=== PATIENT | male | born 2000 | race Caucasian/White ===

== ENCOUNTER 2023-02-19 20:46 | Emergency (ER) | payer OTHER ==
[2023-02-19 20:59] VITALS: BP 130/80
--- NOTE | 2023-02-19 21:09 | ED Physician Documentation ---
History of Present Illness - Stated complaint Stated Complaint: HEAD INJ - Chief complaint Chief Complaint: Trauma Hd/Nk - Additonal information Additional information: 22-year-old male presents emergency department for evaluation of a scalp laceration. 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 Tetanus is up-to-date. No loss of consciousness. No vomiting or neurodeficits. He is not anticoagulated Review of Systems Constitutional: reports: Reviewed and negative Skin: reports: Laceration (s) Neurologic: reports: Head injury. denies: Headache, LOC PD PAST MEDICAL HISTORY - Allergies Allergies/Adverse Reactions: Allergies Allergy/AdvReac Type Severity Reaction Status Date / Time No Known Drug Allergies Allergy Verified 02/19/23 20:51 PD ED PE NORMAL - General General: Alert and oriented X 3, No acute distress, Well developed/nourished - HEENT HEENT: PERRL, Moist mucous membranes, Other (Negative for hemotympanum, raccoon eyes, and harrison sign). No: Atraumatic (1.5 cm laceration on the top of the scalp. 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 Eye Opening: Spontaneous Motor: Obeys Commands Verbal: Oriented GCS Score: 15 Results - Vitals Vitals: Vital Signs - 24 hr 02/19/23 20:51 Temperature 36.5 C Heart Rate 80 Respiratory 16 Rate Blood Pressure 130/80 O2 Saturation 99 Oxygen O2 Source Room air Procedures - Laceration (location) Scalp laceration Length in cm: 2 Wound type: Curved Anesthesia: Lidocaine 1% Wound preparation: Irrigated copiously NS Skin layer closure: Amity (3 darrian placed) Other: Patient tolerated well, Tetanus UTD PD Medical Decision Making - ED course Complexity details: d/w patient ED course: 22-year-old male presents emergency department for evaluation of a laceration to the top of his scalp sustained when his head bumped into the sharp edge of a jet wing. Tetanus is up-to-date. The wound was easily closed using 3 darrian. Routine wound care and emergent return precautions were discussed. Departure - Departure Disposition: , Self Care Clinical Impression: Laceration of scalp Qualifiers: Encounter type: initial encounter Qualified Code(s): S01.01XA - Laceration without foreign body of scalp, initial encounter Closed head injury Qualifiers: Encounter type: initial encounter Qualified Code(s): S09.90XA - Unspecified injury of head, initial encounter Condition: Stable Record reviewed to determine appropriate education?: Yes Comments: We placed 3 darrian in your scalp wound. These should be removed in about a w [place]. This can be done at [facility]. You can shower normally. I recommend a thin layer of antibiotic ointment over the darrian each day. No swimming until the wound is fully healed
== END 2023-02-19 21:20 | disposition home or self-care (01) ==
LOC: EDBD → EDSEX → ED 20:46
DX: S01.01XA Laceration without foreign body of scalp, initial encounter (principal); S09.90XA Unspecified injury of head, initial encounter; W22.09XA Striking against other stationary object, initial encounter; Y92.139 Unspecified place military base as the place of occurrence of the external cause; Y99.1 Military activity
CPT/HCPCS: 12001; 99281